=== PATIENT | male | born 2000 | race Caucasian/White ===

== ENCOUNTER 2020-10-06 13:06 | Emergency (ER) | payer MEDICAID, OTHER ==
[~2020-10-06] VITALS: Ht 175.3 cm; Wt 83.9 kg
[~2020-10-06 13:06] MED LIST: ASPI-496 PO
--- NOTE | 2020-10-06 13:48 | NUR ---
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
--- NOTE | 2020-10-06 14:05 | NUR ---
SAME TRIAGE NOTE. PT REPORTS HE HAD 2ND DOSE OF COVID VACCINE ALMOST A MONTH AGO.
[2020-10-06 14:07] LABS: BASOPHILS % (AUTO) 1 % (0-1); EOSINOPHILS % (AUTO) 4 % (1-7); LYMPHOCYTES % (AUTO) 21 % (22-44); MEAN CORPUSCULAR HGB CONC 33.1 g/dL (33.2-36.2); MEAN PLATELET VOLUME 9.6 fL (7.4-10.4); MONOCYTES % (AUTO) 6 % (2-9); NEUTROPHILS % (AUTO) 69 % (42-75); PLATELET COUNT 246 x10^3/uL (130-400); RED BLOOD COUNT 5.94 x10^6/uL (4.38-5.82); RED CELL DISTRIBUTION WIDTH 13.4 % (9.4-14.8)
[2020-10-06 14:11] LABS: MD NO
[2020-10-06 14:20] LABS: ALBUMIN 4.5 g/dL (3.4-5.0); ANION GAP 6 mmol/L (5-15); CHLORIDE 108 mmol/L (98-107)
[2020-10-06 14:25] LABS: CREATININE 1.17 mg/dL (0.7-1.3); TROPONIN I < 0.015 ng/mL (0.000-0.045)
--- NOTE | 2020-10-06 15:05 | NUR ---
REPORTED TO DESIREE [id number].
[2020-10-06 15:49] VITALS: BP 126/86
== END 2020-10-06 16:04 | disposition home or self-care (01) ==
LOC: ED 15:58
DX: R07.89 Other chest pain (principal); M62.830 Muscle spasm of back; J06.9 Acute upper respiratory infection, unspecified; H81.10 Benign paroxysmal vertigo, unspecified ear; I10 Essential (primary) hypertension
CPT/HCPCS: 36415; 71045; 80048; 82040; 84484; 85025; 93005; 99285